=== PATIENT | male | born 1985 | race Caucasian/White ===

== ENCOUNTER 2016-10-12 20:10 | Emergency (ER) | payer BC, OTHER ==
[~2016-10-12] VITALS: Ht 177.8 cm; Wt 63.5 kg
[2016-10-12 20:10] VITALS: BP 139/79
[2016-10-12] MEDS ORDERED: TETRACAINE 0.5% OPHTH SOLN 4ML OD ONE (21:00)
[2016-10-12] MEDS ORDERED: FLUORESCEIN OPHTH 1 MG STRIP OD ONE (21:00)
[2016-10-12] MEDS ORDERED: SULFACETAMIDE SOD 10% OPHTH SOLN 5ML OD ONE (21:15)
[2016-10-12] MEDS ORDERED: BLEP10SO OD (21:17)
== END 2016-10-12 21:40 | disposition home or self-care (01) ==
LOC: M ED 21:13
DX: T15.11XA Foreign body in conjunctival sac, right eye, initial encounter (principal); H57.11 Ocular pain, right eye; X58.XXXA Exposure to other specified factors, initial encounter; Y92.89 Other specified places as the place of occurrence of the external cause; Y93.89 Activity, other specified; Y99.8 Other external cause status

== ENCOUNTER → 2017-12-12 | Outpatient (CLI) | payer BC, OTHER ==
[2017-12-12 17:18] LABS: EOS # 0.2 10^3/uL (0.0-0.50); EOS % 6.3 % (0.0-3.0); HEMATOCRIT 45.5 % (42.0-52.0); HEMOGLOBIN 15.6 g/dl (13.5-17.5); IMMATURE GRANULOCYTE % 0.3 % (0-3.0); LYMPH # 1.3 10^3/uL (1.5-4.5); LYMPH % 34.6 % (24.0-44.0); MEAN CORPUSCULAR HEMOGLOBIN 30.6 pg (27.0-33.0); MEAN CORPUSCULAR HGB CONC 34.3 g/dl (32.0-36.5); MEAN CORPUSCULAR VOLUME 89.2 fl (80.0-96.0); MONO # 0.4 10^3/uL (0.0-0.8); MONO % 10.4 % (0.0-5.0); NEUTROPHILS # 1.8 10^3/uL (1.8-7.7); NEUTROPHILS % 47.4 % (36.0-66.0); PLATELET COUNT, AUTOMATED 241 10^3/uL (150-450); RED CELL DISTRIBUTION WIDTH 11.9 % (11.5-14.5); WHITE BLOOD COUNT 3.8 10^3/uL (4.0-10.0)
[2017-12-12 17:25] LABS: ALBUMIN 4.4 GM/DL (3.2-5.2); ALBUMIN/GLOBULIN RATIO 1.42 (1.00-1.93); ALKALINE PHOSPHATASE 64 U/L (45-117); ALT/SGPT 25 U/L (12-78); ANION GAP 7 MEQ/L (8-16); AST/SGOT 12 U/L (7-37); BILIRUBIN,TOTAL 0.6 MG/DL (0.2-1.0); BLOOD UREA NITROGEN 12 MG/DL (7-18); CALCIUM LEVEL 9.2 MG/DL (8.5-10.1); CARBON DIOXIDE LEVEL 28 MEQ/L (21-32); CHLORIDE LEVEL 106 MEQ/L (98-107); CHOLESTEROL LEVEL 150 MG/DL (<200); CHOLESTEROL RISK RATIO 3.488 (<5); CREATININE FOR GFR 1.07 MG/DL (0.70-1.30); GLOMERULAR FILTRATION RATE > 60.0 (>60); GLUCOSE, FASTING 84 MG/DL (70-100); HDL CHOLESTEROL 43 MG/DL (>40); LDL CHOLESTEROL 92.2 MG/DL (<100); NON-HDL-C 107 MG/DL; POTASSIUM SERUM 4.5 MEQ/L (3.5-5.1); SODIUM LEVEL 141 MEQ/L (136-145); TOTAL PROTEIN 7.5 GM/DL (6.4-8.2); TRIGLYCERIDES LEVEL 74 MG/DL (<150)
== END ==
LOC: M LABDRWAD 09:22
DX: Z00.00 Encounter for general adult medical examination without abnormal findings (principal); Z13.220 Encounter for screening for lipoid disorders

== ENCOUNTER → 2019-02-22 | Outpatient (REF) | payer OTHER ==
[~2019-02-22] MED LIST: BLEP10SO OD
[2019-02-22 13:29] LABS: SEMEN APPEARANCE OPAQUE (OPAQUE); SEMEN VOLUME 1.2 ml (2.0-5.0)
[2019-02-22 13:30] LABS: SEMEN VISCOSITY VISCOUS (LIQUID); SEMEN pH 8.5 (7.0-8.0); SPERM CONCENTRATION 72.8 M/ml (>=15.0); WBC CONCENTRATION <=1 M/ml (<=1 M/ml)
== END ==
LOC: M LAB REF 12:16
PROVIDERS: ATTEND Obstetrics & Gynecology
DX: Z31.41 Encounter for fertility testing (principal)

== ENCOUNTER → 2019-03-04 | Outpatient (REF) | payer OTHER ==
[2019-03-04 10:24] LABS: SEMEN APPEARANCE OPAQUE (OPAQUE); SEMEN VISCOSITY LIQUID (LIQUID); SEMEN VOLUME 3.5 ml (2.0-5.0)
[2019-03-04 10:25] LABS: WBC CONCENTRATION >1 M/ml (<=1 M/ml)
== END ==
LOC: M LAB REF 10:15
PROVIDERS: ATTEND Obstetrics & Gynecology
DX: N46.9 Male infertility, unspecified (principal)

== ENCOUNTER → 2019-09-02 | Outpatient (REF) | payer OTHER ==
[2019-09-02 13:04] LABS: BASO % 1.2 % (0.0-1.0); EOS # 0.3 10^3/uL (0.0-0.5); EOS % 9.9 % (0.0-3.0); HEMATOCRIT 43.2 % (42.0-52.0); HEMOGLOBIN 14.8 g/dl (13.5-17.5); LYMPH # 0.5 10^3/uL (1.5-5.0); LYMPH % 14.8 % (24.0-44.0); MEAN CORPUSCULAR HEMOGLOBIN 29.9 pg (27.0-33.0); MEAN CORPUSCULAR HGB CONC 34.3 g/dl (32.0-36.5); MEAN CORPUSCULAR VOLUME 87.3 fl (80.0-96.0); MONO # 0.3 10^3/uL (0.0-0.8); MONO % 10.2 % (0.0-5.0); NEUTROPHILS # 2.1 10^3/uL (1.5-8.5); NEUTROPHILS % 63.6 % (36.0-66.0); PLATELET COUNT, AUTOMATED 228 10^3/uL (150-450); RED BLOOD COUNT 4.95 10^6/uL (4.30-6.10); WHITE BLOOD COUNT 3.3 10^3/uL (4.0-10.0)
[2019-09-02 13:12] LABS: ALBUMIN 4.2 GM/DL (3.2-5.2); ALT/SGPT 20 U/L (12-78); BILIRUBIN,TOTAL 0.5 MG/DL (0.2-1.0); BLOOD UREA NITROGEN 11 MG/DL (7-18); CARBON DIOXIDE LEVEL 29 MEQ/L (21-32); CHLORIDE LEVEL 106 MEQ/L (98-107); CHOLESTEROL LEVEL 150 MG/DL (<200); CREATININE FOR GFR 1.08 MG/DL (0.70-1.30); FREE T4 1.19 NG/DL (0.76-1.46); GLOMERULAR FILTRATION RATE > 60.0 (>60); GLUCOSE, FASTING 89 MG/DL (70-100); HDL CHOLESTEROL 46 MG/DL (>40); LDL CHOLESTEROL 95 MG/DL (<100); NON-HDL-C 104 MG/DL; POTASSIUM SERUM 4.3 MEQ/L (3.5-5.1); SODIUM LEVEL 141 MEQ/L (136-145); TOTAL PROTEIN 6.9 GM/DL (6.4-8.2); TRIGLYCERIDES LEVEL 47 MG/DL (<150)
[2019-09-04 00:08] LABS: Lyme Disease IgG/IgM Antibodie <0.91 ISR (0.00-0.90); Lyme Disease IgM Ab Quantitati <0.80 index (0.00-0.79)
== END ==
LOC: M SFHCADAM 08:31
PROVIDERS: ATTEND Family Medicine
DX: Z00.00 Encounter for general adult medical examination without abnormal findings (principal)

== ENCOUNTER → 2019-11-02 | Outpatient (REF) | payer OTHER ==
[2019-11-02 15:06] LABS: HEPATITIS B SURFACE ANTIBODY POSITIVE (POSITIVE); HEPATITIS B SURFACE ANTIGEN NEGATIVE (NEGATIVE); HIV 1&2 SCREEN CENTAUR NEGATIVE (NEGATIVE)
== END ==
LOC: M SFHCADAM 11:04 → M SFHCDERM 11:04
PROVIDERS: ATTEND Dermatology
DX: L40.9 Psoriasis, unspecified (principal); Z79.899 Other long term (current) drug therapy

== ENCOUNTER → 2019-11-30 | Outpatient (REF) | payer OTHER ==
[2019-11-30 16:26] LABS: BASO % 0.4 % (0.0-1.0); EOS # 0.1 10^3/uL (0.0-0.5); EOS % 0.7 % (0.0-3.0); HEMATOCRIT 44.8 % (42.0-52.0); HEMOGLOBIN 15.5 g/dl (13.5-17.5); LYMPH # 0.2 10^3/uL (1.5-5.0); LYMPH % 1.9 % (24.0-44.0); MEAN CORPUSCULAR HEMOGLOBIN 30.2 pg (27.0-33.0); MEAN CORPUSCULAR HGB CONC 34.6 g/dl (32.0-36.5); MEAN CORPUSCULAR VOLUME 87.3 fl (80.0-96.0); MONO # 0.7 10^3/uL (0.0-0.8); NEUTROPHILS # 7.3 10^3/uL (1.5-8.5); NEUTROPHILS % 88.6 % (36.0-66.0); PLATELET COUNT, AUTOMATED 184 10^3/uL (150-450); RED BLOOD COUNT 5.13 10^6/uL (4.30-6.10); WHITE BLOOD COUNT 8.2 10^3/uL (4.0-10.0)
[2019-11-30 17:01] LABS: ALBUMIN 4.2 GM/DL (3.2-5.2); ALT/SGPT 23 U/L (12-78); BILIRUBIN,TOTAL 0.8 MG/DL (0.2-1.0); BLOOD UREA NITROGEN 10 MG/DL (7-18); CALCIUM LEVEL 9.5 MG/DL (8.5-10.1); CARBON DIOXIDE LEVEL 25 MEQ/L (21-32); CHLORIDE LEVEL 101 MEQ/L (98-107); CREATININE FOR GFR 1.07 MG/DL (0.70-1.30); GLOMERULAR FILTRATION RATE > 60.0 (>60); GLUCOSE, FASTING 80 MG/DL (70-100); POTASSIUM SERUM 3.9 MEQ/L (3.5-5.1); SODIUM LEVEL 135 MEQ/L (136-145); TOTAL PROTEIN 7.2 GM/DL (6.4-8.2)
== END ==
LOC: M LABDRWAD 16:11
PROVIDERS: ATTEND Physician Assistant
DX: R50.9 Fever, unspecified (principal)

== ENCOUNTER → 2020-04-04 | Outpatient (REF) | payer OTHER ==
[2020-04-04 13:14] LABS: APPEARANCE, URINE CLEAR (CLEAR); BACTERIA, URINE AUTO NEGATIVE (NEGATIVE); BILIRUBIN, URINE AUTO NEGATIVE (NEGATIVE); BLOOD, URINE BLOOD NEGATIVE (NEGATIVE); COLOR, URINE STRAW (YELLOW); GLUCOSE, URINE (UA) AUTO NEGATIVE (NEGATIVE); KETONE, URINE AUTO NEGATIVE (NEGATIVE); LEUKOCYTE ESTERASE, URINE AUTO NEGATIVE (NEGATIVE); MUCUS, URINE SMALL (NEGATIVE); NITRITE, URINE AUTO NEGATIVE (NEGATIVE); PROTEIN, URINE AUTO NEGATIVE (NEGATIVE); RBC, URINE AUTO 0 /HPF (0-3); SPECIFIC GRAVITY URINE AUTO 1.005 (1.002-1.035); SQUAMOUS EPITHELIAL CELL UR AU 0 /HPF (0-6); UROBILINOGEN, URINE AUTO 0.2 mg/dL (0.0-2.0); WBC, URINE AUTO 0 /HPF (0-3)
[2020-04-04 13:19] LABS: HEMATOCRIT 44.2 % (42.0-52.0); HEMOGLOBIN 14.9 g/dl (13.5-17.5); MEAN CORPUSCULAR HGB CONC 33.7 g/dl (32.0-36.5); MEAN CORPUSCULAR VOLUME 89.1 fl (80.0-96.0); PLATELET COUNT, AUTOMATED 228 10^3/uL (150-450); RED BLOOD COUNT 4.96 10^6/uL (4.30-6.10)
[2020-04-04 13:49] LABS: ALBUMIN 3.9 GM/DL (3.2-5.2); ALT/SGPT 31 U/L (12-78); BILIRUBIN,TOTAL 0.5 MG/DL (0.2-1.0); BLOOD UREA NITROGEN 12 MG/DL (7-18); CALCIUM LEVEL 9.2 MG/DL (8.5-10.1); CARBON DIOXIDE LEVEL 27 MEQ/L (21-32); CHLORIDE LEVEL 107 MEQ/L (98-107); CHOLESTEROL LEVEL 152 MG/DL (<200); CHOLESTEROL RISK RATIO 3.377 (<5); CREATININE FOR GFR 1.01 MG/DL (0.70-1.30); GLOMERULAR FILTRATION RATE > 60.0 (>60); GLUCOSE, FASTING 90 MG/DL (70-100); HDL CHOLESTEROL 45 MG/DL (>40); LDL CHOLESTEROL 90 MG/DL (<100); MAGNESIUM LEVEL 2.2 MG/DL (1.8-2.4); NON-HDL-C 107 MG/DL; POTASSIUM SERUM 4.6 MEQ/L (3.5-5.1); SODIUM LEVEL 140 MEQ/L (136-145); TOTAL PROTEIN 7.5 GM/DL (6.4-8.2); TRIGLYCERIDES LEVEL 85 MG/DL (<150)
== END ==
LOC: M SFHCDERM 08:55 → M SFHCADAM 08:59
PROVIDERS: ATTEND Dermatology
DX: Z79.899 Other long term (current) drug therapy (principal)

== ENCOUNTER → 2020-05-03 | Outpatient (REF) | payer OTHER ==
[2020-05-03 13:03] LABS: APPEARANCE, URINE CLEAR (CLEAR); BACTERIA, URINE AUTO NEGATIVE (NEGATIVE); BILIRUBIN, URINE AUTO NEGATIVE (NEGATIVE); BLOOD, URINE BLOOD NEGATIVE (NEGATIVE); COLOR, URINE YELLOW (YELLOW); GLUCOSE, URINE (UA) AUTO NEGATIVE (NEGATIVE); KETONE, URINE AUTO NEGATIVE (NEGATIVE); LEUKOCYTE ESTERASE, URINE AUTO NEGATIVE (NEGATIVE); NITRITE, URINE AUTO NEGATIVE (NEGATIVE); PROTEIN, URINE AUTO NEGATIVE (NEGATIVE); RBC, URINE AUTO 0 /HPF (0-3); SPECIFIC GRAVITY URINE AUTO 1.011 (1.002-1.035); SQUAMOUS EPITHELIAL CELL UR AU 0 /HPF (0-6); UROBILINOGEN, URINE AUTO 0.2 mg/dL (0.0-2.0); WBC, URINE AUTO 0 /HPF (0-3)
[2020-05-03 13:52] LABS: ALBUMIN 4.3 GM/DL (3.2-5.2); ALT/SGPT 33 U/L (12-78); BILIRUBIN,TOTAL 0.6 MG/DL (0.2-1.0); BLOOD UREA NITROGEN 12 MG/DL (7-18); CALCIUM LEVEL 9.6 MG/DL (8.5-10.1); CARBON DIOXIDE LEVEL 25 MEQ/L (21-32); CHLORIDE LEVEL 105 MEQ/L (98-107); CHOLESTEROL LEVEL 164 MG/DL (<200); CHOLESTEROL RISK RATIO 3.346 (<5); CREATININE FOR GFR 1.08 MG/DL (0.70-1.30); GLOMERULAR FILTRATION RATE > 60.0 (>60); GLUCOSE, FASTING 93 MG/DL (70-100); HDL CHOLESTEROL 49 MG/DL (>40); LDL CHOLESTEROL 92 MG/DL (<100); MAGNESIUM LEVEL 2.3 MG/DL (1.8-2.4); NON-HDL-C 115 MG/DL; POTASSIUM SERUM 4.7 MEQ/L (3.5-5.1); SODIUM LEVEL 137 MEQ/L (136-145); TOTAL PROTEIN 7.8 GM/DL (6.4-8.2); TRIGLYCERIDES LEVEL 115 MG/DL (<150); URIC ACID 3.7 MG/DL (3.5-7.2)
== END ==
LOC: M SFHCADAM 08:53
PROVIDERS: ATTEND Dermatology
DX: Z79.899 Other long term (current) drug therapy (principal)

== ENCOUNTER → 2021-03-13 | Outpatient (CLI) | payer BC, OTHER | LOC: M LAB 11:58 | PROVIDERS: ATTEND Physician Assistant | DX: Z79.899 Other long term (current) drug therapy (principal) ==

== ENCOUNTER → 2022-04-17 | Outpatient (CLI) | payer BC, OTHER | LOC: M LABDRWAD 11:19 | PROVIDERS: ATTEND Nurse Practitioner Family | DX: L40.9 Psoriasis, unspecified (principal) ==

== ENCOUNTER 2023-02-10 11:19 | Emergency (ER) | payer OTHER ==
[~2023-02-10] VITALS: Ht 177.8 cm; Wt 68.2 kg
[2023-02-10] MEDS ORDERED: PROPARACAINE 0.5% OPHTH SOL 15ML OU ONE (13:05)
[2023-02-10] MEDS ORDERED: OPTI0.5D5 OP (13:45)
[2023-02-10 14:01] VITALS: BP 132/82; TEMP 97.1; O2SAT 98
== END 2023-02-10 14:02 | disposition home or self-care (01) ==
LOC: M ED 11:19
DX: T26.61XA Corrosion of cornea and conjunctival sac, right eye, initial encounter (principal); T26.62XA Corrosion of cornea and conjunctival sac, left eye, initial encounter; X58.XXXA Exposure to other specified factors, initial encounter

== ENCOUNTER → 2023-04-23 | Outpatient (REF) | payer BC, OTHER ==
[~2023-04-23] MED LIST changes: +OPTI0.5D5 OP
== END ==
LOC: M SFHCADAM 11:31
PROVIDERS: ATTEND Nurse Practitioner Family
DX: L40.9 Psoriasis, unspecified (principal); Z79.899 Other long term (current) drug therapy

== ENCOUNTER → 2024-07-19 | Outpatient (REF) | payer BC ==
[~2024-07-19] MED LIST changes: +BACT800T5 PO; +MIRA3350 PO; +ONDA-282 PO; +OPTI0.5D2 OP; -OPTI0.5D5 OP
== END ==
LOC: M SFHCADAM 11:13
PROVIDERS: ATTEND Nurse Practitioner Family
DX: L40.9 Psoriasis, unspecified (principal)

== ENCOUNTER 2025-01-29 09:52 | Inpatient (IN) | payer BC, OTHER ==
[~2025-01-29] VITALS: Ht 177.8 cm; Wt 67.3 kg
[2025-01-29] MEDS ORDERED: TREM100I INJ (10:01)
[2025-01-29] MEDS ORDERED: SERT50TA29 (10:01)
[2025-01-29] MEDS ORDERED: HYDR50TA70 PO (10:01)
[2025-01-29 10:41] LABS: PLATELET COUNT, AUTOMATED 242 10^3/uL (150-450)
[2025-01-29] MEDS: NICOTINE 21 MG/24 HR 1 EA TRANSDERMAL TD ONE (10:52)
[2025-01-29 10:59] LABS: AMPHETAMINES LEVEL URINE NEGATIVE (NEGATIVE); BARBITURATES URINE NEGATIVE (NEGATIVE); BENZODIAZEPINES URINE NEGATIVE (NEGATIVE); CANNABINOIDS URINE NEGATIVE (NEGATIVE); COCAINE METABOLITE URINE NEGATIVE (NEGATIVE); METHADONE URINE NEGATIVE (NEGATIVE); OPIATES URINE NEGATIVE (NEGATIVE); PHENCYCLIDINE URINE NEGATIVE (NEGATIVE)
[2025-01-29 11:02] LABS: ETHYL ALCOHOL (ETHANOL) 0.004 % (0.000-0.010)
[2025-01-29 11:03] LABS: SALICYLATE LEVEL < 3.0 MG/DL (<30)
[2025-01-29 11:05] LABS: ALT/SGPT 21 U/L (7.0-40); AST/SGOT 21 U/L (<34); CALCIUM LEVEL 9.5 MG/DL (8.5-10.1); CARBON DIOXIDE LEVEL 27 MMOL/L (20-31); CHLORIDE LEVEL 106 MMOL/L (98-107); CREATININE FOR GFR 0.92 MG/DL (0.70-1.30); GLOMERULAR FILTRATION RATE > 90.0 (>60); POTASSIUM SERUM 4.1 MMOL/L (3.5-5.1); SODIUM LEVEL 142 MMOL/L (136-145)
[2025-01-29] MEDS ORDERED: ZOLO100T PO (11:14)
[2025-01-29] MEDS ORDERED: HOME MED LIST COMPLETE! XX SCH (11:15)
[2025-01-29] MEDS ORDERED: MAALOX 30 ML SUSP *UDC PO PRN (14:50)
[2025-01-29] MEDS ORDERED: OLANZapine 5 MG TAB PO PRN (14:50)
[2025-01-29] MEDS ORDERED: ACETAMINOPHEN 325 MG TAB PO PRN (14:50)
[2025-01-29] MEDS ORDERED: IBUPROFEN 400 MG TAB PO PRN (14:50)
[2025-01-29] MEDS ORDERED: HALOPERIDOL 5 MG TAB PO PRN (14:50)
[2025-01-29] MEDS ORDERED: MOM 30 ML SUSPENSION UDC PO PRN (14:50)
[2025-01-29] MEDS ORDERED: LORazepam 1 MG TAB PO PRN (14:50)
[2025-01-29 16:15] VITALS: BP 111/59; TEMP 97.9; O2SAT 98
[2025-01-29] MEDS: MULTIVITAMINS/MINERALS THERAP 1 TAB PO SCH (18:00)
[2025-01-29] MEDS: FOLIC ACID 1 MG TAB PO SCH (18:00)
[2025-01-29] MEDS: THIAMINE 100 MG TAB PO SCH (18:00)
[2025-01-29] MEDS ORDERED: NICOTINE 21 MG/24 HR 1 EA TRANSDERMAL TD PRN (19:25)
[2025-01-29] MEDS: SERTRALINE 100 MG TAB PO SCH (20:41)
[2025-01-30 06:30] VITALS: BP 135/70
[2025-01-30 06:31] VITALS: BP 135/70; TEMP 97.7; O2SAT 99
[2025-01-30 09:00] VITALS: BP 135/70
[2025-01-30] MEDS ORDERED: NICOTINE 14 MG/24 HR TRANSDERMAL TD SCH (09:00)
[2025-01-30] MEDS: NICOTINE 21 MG/24 HR 1 EA TRANSDERMAL TD PRN (09:23)
[2025-01-30] MEDS ORDERED: PILL CUTTER 1 EACH XX PRN (10:45)
[2025-01-30 15:33] VITALS: BP 136/84; TEMP 98.1; O2SAT 100
[2025-01-30 17:00] VITALS: BP 136/84
[2025-01-30] MEDS: SERTRALINE 100 MG TAB PO SCH (20:34)
[2025-01-30] MEDS: traZODone 50 MG TAB PO PRN (22:23)
[2025-01-31 06:24] VITALS: BP 117/59; TEMP 98.4; O2SAT 98
[2025-01-31 14:24] VITALS: BP 126/77
[2025-01-31 17:23] VITALS: BP 126/77; TEMP 97.4; O2SAT 100
[2025-02-01 06:15] VITALS: BP 130/71; TEMP 97.7; O2SAT 99
[2025-02-01 15:16] VITALS: BP 118/67; TEMP 97.6; O2SAT 100
[2025-02-02 06:43] VITALS: BP 122/61; TEMP 97.6; O2SAT 99
[2025-02-02] MEDS ORDERED: ZOLO100T PO (08:37)
== END 2025-02-02 11:28 | disposition home or self-care (01) | DRG 754 ==
LOC: M ED 09:52 → M ED INP 14:50 → M PSY 16:15
PROVIDERS: ADMIT Internal Medicine; ATTEND Psychiatry & Neurology Psychiatry
DX: F32.A Depression, unspecified (principal); R45.851 Suicidal ideations; F41.9 Anxiety disorder, unspecified; F10.10 Alcohol abuse, uncomplicated; F17.210 Nicotine dependence, cigarettes, uncomplicated; J45.909 Unspecified asthma, uncomplicated; L40.9 Psoriasis, unspecified; Z63.0 Problems in relationship with spouse or partner; Z79.899 Other long term (current) drug therapy; Z88.0 Allergy status to penicillin; Z88.8 Allergy status to other drugs, medicaments and biological substances; Z91.013 Allergy to seafood

== ENCOUNTER 2025-02-03 13:47 | Emergency (ER) | payer BC ==
[~2025-02-03] VITALS: Ht 177.8 cm; Wt 66.6 kg
[~2025-02-03 13:47] MED LIST changes: +HYDR50TA70 PO; +SERT50TA29; +TREM100I INJ; +ZOLO100T PO
[2025-02-03 14:47] LABS: PLATELET COUNT, AUTOMATED 201 10^3/uL (150-450)
[2025-02-03] MEDS ORDERED: HOME MED LIST COMPLETE! XX SCH (15:00)
[2025-02-03 15:13] LABS: ETHYL ALCOHOL (ETHANOL) 0.176 % (0.000-0.010)
[2025-02-03 15:14] LABS: ALT/SGPT 13 U/L (7.0-40); AST/SGOT 13 U/L (<34); CALCIUM LEVEL 8.6 MG/DL (8.5-10.1); CARBON DIOXIDE LEVEL 26 MMOL/L (20-31); CHLORIDE LEVEL 103 MMOL/L (98-107); CREATININE FOR GFR 0.92 MG/DL (0.70-1.30); GLOMERULAR FILTRATION RATE > 90.0 (>60); POTASSIUM SERUM 3.7 MMOL/L (3.5-5.1); SALICYLATE LEVEL < 3.0 MG/DL (<30); SODIUM LEVEL 140 MMOL/L (136-145)
[2025-02-03 16:27] LABS: AMPHETAMINES LEVEL URINE NEGATIVE (NEGATIVE); BARBITURATES URINE NEGATIVE (NEGATIVE); BENZODIAZEPINES URINE NEGATIVE (NEGATIVE); COCAINE METABOLITE URINE NEGATIVE (NEGATIVE); METHADONE URINE NEGATIVE (NEGATIVE)
[2025-02-03 16:28] LABS: CANNABINOIDS URINE NEGATIVE (NEGATIVE); OPIATES URINE NEGATIVE (NEGATIVE); PHENCYCLIDINE URINE NEGATIVE (NEGATIVE)
[2025-02-03 19:36] VITALS: BP 104/56; TEMP 97.8; O2SAT 99
[2025-02-03] MEDS: SERTRALINE HCL 50 MG TAB PO SCH (21:09)
== END 2025-02-03 21:18 | disposition home or self-care (01) ==
LOC: M ED 13:47
DX: F10.120 Alcohol abuse with intoxication, uncomplicated (principal); F41.9 Anxiety disorder, unspecified; F32.A Depression, unspecified; F17.210 Nicotine dependence, cigarettes, uncomplicated; Z88.1 Allergy status to other antibiotic agents; Z88.8 Allergy status to other drugs, medicaments and biological substances; Z91.013 Allergy to seafood; Z79.899 Other long term (current) drug therapy

== ENCOUNTER → 2025-06-07 | Outpatient (REF) | payer BC, OTHER | LOC: M SFHCDERM 12:48 | PROVIDERS: ATTEND Nurse Practitioner Family | DX: L40.9 Psoriasis, unspecified (principal) ==